=== PATIENT | male | born 1970 | race Caucasian/White ===

== ENCOUNTER → 2016-10-26 | Outpatient (CLI) | payer BC ==
--- NOTE | 2016-10-29 09:47 | MR ---
EXAMINATION TYPE: MR cervical spine wo con DATE OF EXAM: 10/26/2016 4:38 PM COMPARISON: NONE HISTORY: Radiculopathy TECHNIQUE: Multiplanar, multisequence images of the cervical spine were acquired. Exam is limited by patient mot ion. There were attempts to repeat sequences due to severe motion artifact. This did result in a limi brittany assessment of the spinal cord. C2-C3: No disc herniation or canal stenosis. There is left-sided uncovertebral joint hypertrophy whic h results in mild left-sided foraminal encroachment. C3-C4: Mild uncovertebral joint hypertrophy seen with mild broad-based disc bulging but no canal sten osis. Mild bilateral foraminal encroachment. C4-C5: Uncovertebral joint hypertrophy bilaterally. There is a central and left paracentral disc prot rusion with mild effacement of thecal sac. No spinal cord contact. Mild bilateral foraminal encroachm ent. C5-C6: Broad-based central disc small herniation with moderate effacement of thecal sac. Uncovertebra l joint hypertrophy contributes to bilateral mild to moderate foraminal encroachment. There is mild c anal stenosis. C6-C7: Focal broad-based central disc herniation. There is encroachment upon the anterior margin the spinal cord. No definite contact. Uncovertebral joint hypertrophy contributes to moderate bilateral f oraminal encroachment. Assessment for myelitis is limited due to severe motion artifact. C7-T1: No evidence for degenerative disc disease. No disc bulge/herniation or protrusion. No Canal stenosis. Foramina are patent bilaterally. Cervical segments are intact. There is normal alignment. Cervical spinal cord is of normal signal. Craniovertebral junction relationships are within normal limits. IMPRESSION: 1. Disc protrusion or small herniation C4-C5, C5-C6, and C6-C7 with thecal sac impression and canal s tenosis. No spinal cord contact. Findings result in multilevel foraminal encroachment.
== END ==
LOC: RADMRIMAIN 15:16
PROVIDERS: ATTEND Family Medicine
DX: M50.21 Other cervical disc displacement, high cervical region (principal); M50.222 Other cervical disc displacement at C5-C6 level; M50.223 Other cervical disc displacement at C6-C7 level; M48.02 Spinal stenosis, cervical region; G95.89 Other specified diseases of spinal cord
CPT/HCPCS: 72141

== ENCOUNTER → 2017-05-24 | Outpatient (CLI) | payer BC | END | disposition home or self-care (01) | LOC: RADMRIMAIN 18:28 | PROVIDERS: ATTEND Orthopaedic Surgery | DX: Z53.9 Procedure and treatment not carried out, unspecified reason (principal) ==

== ENCOUNTER 2018-03-26 08:54 | Day surgery (SDC) | payer BC ==
[2018-03-20 14:59] VITALS: BMI 29.1
[~2018-03-26 08:54] MED LIST: LACTATED RINGERS 1,000 ML IV SCH; LIDOCAINE 1% 20 ML VIAL (10MG/ML) FOR IV START INTRADERMA PRN
--- NOTE | 2018-03-26 09:15 | P.GSHP ---
History of Present Illness H&P Date: 03/26/18 CHIEF COMPLAINT: Colon screen HISTORY OF PRESENT ILLNESS: The patient is a 47-year-old male who presents for colon screen. Lower endoscopy was offered for further evaluation and management. PAST MEDICAL HISTORY: Please see list. PAST SURGICAL HISTORY: Please see list. MEDICATIONS: Please see list. ALLERGIES: Please see list. SOCIAL HISTORY: No illicit drug use FAMILY HISTORY: No reports of Crohn disease or ulcerative colitis. REVIEW OF ORGAN SYSTEMS: CONSTITUTIONAL: No reports of fevers or chills. PHYSICAL EXAM: VITAL SIGNS: Stable GENERAL: Well-developed pleasant in no acute distress. HEENT: No scleral icterus. Extraocular movements grossly intact. Moist buccal mucosa. NECK: Supple without lymphadenopathy. CHEST: Unlabored respirations. Equal bilateral excursions. CARDIOVASCULAR: Regular rate and rhythm. Distal 2+ pulses. ABDOMEN: Soft, nontender, nondistended. MUSCULOSKELETAL: No clubbing, cyanosis, or edema. ASSESSMENT: 1. Colon screen. PLAN: 1. Recommend proceeding with a lower endoscopy Past Medical History Additional Past Medical History / Comment(s): + HEMOCCULT TEST History of Any Multi-Drug Resistant Organisms: None Reported Additional Past Surgical History / Comment(s): COLONOSCOPY Past Anesthesia/Blood Transfusion Reactions: No Reported Reaction Smoking Status: Current every day smoker - Past Family History Mother Family Medical History: No Reported History Medications and Allergies Home Medications Medication Instructions Recorded Confirmed Type Losartan Potassium 100 mg PO DAILY 03/20/18 03/20/18 History Allergies Allergy/AdvReac Type Severity Reaction Status Date / Time No Known Allergies Allergy Verified 03/20/18 14:54
[2018-03-26 10:27] VITALS: RESP 16; TEMP 97
[2018-03-26] MEDS ORDERED: LIDOCAINE 1% INJ 10MG/ML (20 ML MDV) ONE (11:12)
[2018-03-26] MEDS ORDERED: fentaNYL (PF) 50 MCG/ML 2 ML AMP ONE (11:12)
[2018-03-26] MEDS ORDERED: PROPOFOL 10 MG/ML 20 ML VIAL IV ONE (11:12)
[2018-03-26] MEDS ORDERED: MIDAZOLAM 2 MG/2 ML VIAL ONE (11:12)
--- NOTE | 2018-03-26 11:44 | P.PCN ---
Date of Procedure: 03/26/18 Description of Procedure: PREOPERATIVE DIAGNOSIS: History of positive colo-guard Colonoscopy screening POSTOPERATIVE DIAGNOSIS: History of positive colo-guard Colonoscopy screening Multiple tubular adenomas throughout the colon. External hemorrhoids, grade 2 OPERATION: Colonoscopy to the ileocecal valve and appendiceal orifice. Colonoscopy with multiple hot snare polypectomies Colonoscopy with multiple cold forceps biopsies. SURGEON: Nevaeh Sweeney MD. ANESTHESIA: MAC. INDICATIONS: The patient is a 47-year-old male who presents for colonoscopy screening due to positive colo-guard test. Benefits and risks were described and informed consent was obtained. DESCRIPTION OF PROCEDURE: The patient had undergone Gatorade, MiraLAX and Dulcolax prep. He had been brought into the operating room and laid in the left lateral decubitus position. Prostate was smooth without abnormalities. After adequate intravenous sedation, the rectum was examined with 2% lidocaine jelly. External hemorrhoids were encountered. The rectal tone was within normal limits. No lesions were palpated in the rectal vault. An Olympus colonoscope was advanced until the ileocecal valve and appendiceal orifice were clearly viewed. The prep was fair with visualization of the mucosal folds. The scope was removed with visualization of each mucosal fold. No scattered diverticulosis was encountered. Multiple colonic polyps were found and cold forcep biopsy or snare polypectomy. Mild focal colitis was found at the sigmoid colon without active bleeding. Retroflexion of the scope demonstrated grade 2 internal hemorrhoids without active bleeding or inflammation. The colon was desufflated. The patient had tolerated the procedure well. Withdrawal time was over 6 minutes. FINDINGS: Internal hemorrhoids, grade 2 External hemorrhoids, grade 2. No arteriovenous malformations. Focal colitis, sigmoid colon mild without active bleeding with biopsies obtained using cold forceps Removal of 2 polyps: - Snare polypectomy 40 cm from the anal verge, 5 mm tubulovillous adenoma polyp , descending colon - Cold forceps biopsy at 10 cm from the anal verge, 4 mm polyp, rectum No sigmoid diverticulosis and identified RECOMMENDATIONS: Repeat colonoscopy in 5 years, 2022 Plan - Discharge Summary New Discharge Prescriptions: No Action Losartan Potassium 100 mg PO DAILY Discharge Medication List Losartan Potassium 100 mg PO DAILY 03/20/18 [History]
[2018-03-26 11:57] VITALS: BP 135/87; PULSE 68
== END 2018-03-26 12:19 | disposition home or self-care (01) ==
LOC: ORWHC2ENDO 08:54
PROVIDERS: ATTEND Surgery Plastic and Reconstructive Surgery
DX: D12.4 Benign neoplasm of descending colon (principal); K64.4 Residual hemorrhoidal skin tags; K64.1 Second degree hemorrhoids; K63.5 Polyp of colon; K52.9 Noninfective gastroenteritis and colitis, unspecified; F17.210 Nicotine dependence, cigarettes, uncomplicated; R19.5 Other fecal abnormalities; Z79.899 Other long term (current) drug therapy; Z88.2 Allergy status to sulfonamides
CPT/HCPCS: 88305; 45385; 45380; J2250; J2001; J3010; J2704

== ENCOUNTER → 2018-04-23 | Outpatient (CLI) | payer BC ==
--- NOTE | 2018-04-23 15:14 | XR ---
Lumbar spine HISTORY: Sciatica 3 views of the lumbar spine correlated to prior exam 09/07/2008 Lumbar vertebral bodies show preserved height, alignment, and bone mineralization. There is multileve l spondylosis. Loss of disc height present at L5-S1. Sclerosis present in the posterior elements of t he lower lumbar spine. Apical scarring vascular calcifications are noted incidentally. IMPRESSION: Degenerative disc disease and facet arthropathy.
== END ==
LOC: RADXRMAIN 14:02
PROVIDERS: ATTEND Family Medicine
DX: M51.16 Intervertebral disc disorders with radiculopathy, lumbar region (principal); M46.96 Unspecified inflammatory spondylopathy, lumbar region
CPT/HCPCS: 72100

== ENCOUNTER → 2019-09-23 | Outpatient (CLI) | payer BC ==
--- NOTE | 2019-09-23 12:49 | US ---
EXAMINATION TYPE: US abdomen complete DATE OF EXAM: 09/23/2019 COMPARISON: NONE CLINICAL HISTORY: R10.9 abdominal pain, unspecified. EXAM MEASUREMENTS: Liver Length: 14.6 cm Gallbladder Wall: 0.1 cm CBD: 0.3 cm Spleen: 10.2 cm Right Kidney: 11.7 x 4.0 x 5.3 cm Left Kidney: 11.6 x 5.1 x 5.2 cm Extensive overlying bowel gas. Pancreas: Obscured by bowel gas Liver: Punctate benign calcified granuloma shadowing within the liver parenchyma. Gallbladder: wnl Evidence for sonographic Buchanan's sign: no CBD: wnl Spleen: wnl Right Kidney: wnl Left Kidney: wnl Upper IVC: wnl Abd Aorta: proximal and bifurcation obscured by bowel gas The liver is homogenous. The intrahepatic portion of the IVC and proximal abdominal aorta are within normal limits. There is no evidence of cholelithiasis. Common bile duct is unremarkable. The visu alized portions of the pancreas are homogenous. The spleen is unremarkable. Kidneys are symmetric a nd free of hydronephrosis. No renal lesions are seen. IMPRESSION: No sonographic evidence of hydronephrosis or nephrolithiasis no evidence of cholelithiasi s nor acute cholecystitis.
== END | disposition home or self-care (01) ==
LOC: RADUSWWP 09:54
PROVIDERS: ATTEND Family Medicine
DX: R10.9 Unspecified abdominal pain (principal)
CPT/HCPCS: 76700

== ENCOUNTER → 2020-08-11 | Outpatient (CLI) | payer BC ==
--- NOTE | 2020-08-11 15:12 | CT ---
EXAMINATION TYPE: CT abdomen pelvis w con DATE OF EXAM: 08/11/2020 COMPARISON: None INDICATION: LOWER ABDOMINAL PAIN DLP: 1102.6 mGycm, Automated exposure control for dose reduction was used. CONTRAST: 100 mL of Isovue 300. Study performed with Oral Contrast TECHNIQUE: Axial images were obtained from above the diaphragm to the pubic rami in the axial plane a t 5 mm thick sections. Reconstructed images are reviewed on the computer in the coronal plane. FINDINGS: Limited CT sections are obtained the lung bases. The lung bases are clear. CT ABDOMEN: Liver: Couple of calcified granuloma are within the liver near the gallbladder bed fossa. Spleen: Normal Pancreas: Normal Adrenal glands: The adrenal glands are normal. Gallbladder: Normal Kidneys: No masses are evident. No hydronephrosis is present. No cysts are present. Delayed images were obtained through the kidneys, which remain unremarkable. Aorta: Vascular calcification is within the aorta. No aneurysmal dilatation is evident. Mild fusifor m mid abdominal aortic prominence may be present. Inferior vena cava: Normal. CT PELVIS: Loops of bowel within the abdomen and pelvis are normal. A few scattered diverticuli are within the lower colon. No acute diverticulitis is evident. Loops of bowel distended with oral contrast are no rmal. Appendix: Normal as visualized. Urinary bladder: Normal. Genitourinary structures: Prostate is normal Osseous structures: No suspicious lytic or sclerotic lesions. IMPRESSIONS: 1. No suspicious acute changes to account for abdominal pain
== END | disposition home or self-care (01) ==
LOC: RADCTMAIN 12:56
PROVIDERS: ATTEND Family Medicine
DX: R10.9 Unspecified abdominal pain (principal)
CPT/HCPCS: 74177; Q9967

== ENCOUNTER → 2022-12-05 | Outpatient (CLI) | payer BC ==
--- NOTE | 2022-12-05 11:44 | CA ---
Stress Echo Report Felipe Soliman Age: 52 Gender: M : 1970 Exam Date: 12/05/2022 09:31 Exam Location: [facility] Ht (in): 72 Wt (lb): 220 Ordering Physician: Rodriguez Cruz MD Referring Physician: Anthony BRITTON Tank Wagon Driver: Adele Gallego RDCS Technologist Procedure CPT: Indication: R07.9 CHEST PAIN, UNSPECIFIED ICD-9 Codes: Rhythm: Patient History: Hypertension, Atypical angina, Smoker Cardiac Medications: NONE Medications in past 24 hours: NONE Contrast: Stress Results Protocol: Gordon Total dose(mL): Exercise Duration (min:sec): 12:[address] Depression (mm): Angina Score: Elizabeth Score: METS: 12.3 Resting HR: 96 Resting BP: 155 / 93 Peak HR: 178 Peak BP: 226 / 87 Max Predicted HR: 168 106 % Max Predicted HR Target HR: 143 Double Product: [id number] Stress Summary: The patient's target heart rate was achieved BP Response: Normal Reason for Termination: Reached target heart rate or work-load Cardiac Symptoms: Test terminated after reaching target heart rate (85% max predicted) ECG Analysis Resting ECG: Stress ECG: Arrhythmia: Echo Analysis Resting Echo: Peak Echo Analysis: MEASUREMENTS (Male/Female) Normal Values CONCLUSIONS Baseline heart rate 86 beats a minute, Baseline blood pressure 155/93 mmHg Baseline EKG shows sinus mechanism normal ME narrow QRS normal ST segments Patient exercised on a Gordon protocol for 12 minutes 7 seconds achieving a peak heart rate of 178 beats a minute. Hypertensive response to exercise The blood pressure 226/87 mmHg No symptoms noted Baseline 2-D echo images showed normal LV systolic function without segmental wall motion abnormalities At peak exercise is excellent augmentation of overall LV contractility with a hyperdynamic response No wall motion abnormalities noted At recovery region global LV systolic function remained normal Impression Excellent exercise capacity on a Gordon protocol No ECG or echocardiographic evidence for ischemia Hypertension Dr. Leonle Severino MD (Electronically Signed) Final Date: 05 December 2022 11:43
== END | disposition home or self-care (01) ==
LOC: RADNMMAIN 09:02
PROVIDERS: ATTEND Family Medicine
DX: R07.9 Chest pain, unspecified (principal)
CPT/HCPCS: 93351

== ENCOUNTER 2023-04-10 09:03 | Day surgery (SDC) | payer BC ==
[~2023-04-10 09:03] MED LIST changes: +LIDOCAINE 1% (10MG/ML) FOR IV START INTRADERMA PRN; -LIDOCAINE 1% 20 ML VIAL (10MG/ML) FOR IV START INTRADERMA PRN
[2023-04-10 09:41] VITALS: TEMP 97.2
[2023-04-10] MEDS ORDERED: LIDOCAINE 2% INJ 20 MG/ML (2 ML VIAL) ONE (10:34)
[2023-04-10] MEDS ORDERED: PROPOFOL 10 MG/ML 20 ML VIAL IV ONE (10:34)
--- NOTE | 2023-04-10 10:38 | P.GSHP ---
History of Present Illness H&P Date: 04/10/23 CHIEF COMPLAINT: Colon screen HISTORY OF PRESENT ILLNESS: The patient is a 52-year-old male who presents for colon screen. Lower endoscopy was offered for further evaluation and management. PAST MEDICAL HISTORY: Please see list. PAST SURGICAL HISTORY: Please see list. MEDICATIONS: Please see list. ALLERGIES: Please see list. SOCIAL HISTORY: No illicit drug use FAMILY HISTORY: No reports of Crohn disease or ulcerative colitis. REVIEW OF ORGAN SYSTEMS: CONSTITUTIONAL: No reports of fevers or chills. PHYSICAL EXAM: VITAL SIGNS: Stable GENERAL: Well-developed pleasant in no acute distress. HEENT: No scleral icterus. Extraocular movements grossly intact. Moist buccal mucosa. NECK: Supple without lymphadenopathy. CHEST: Unlabored respirations. Equal bilateral excursions. CARDIOVASCULAR: Regular rate and rhythm. Distal 2+ pulses. ABDOMEN: Soft, nontender, nondistended. MUSCULOSKELETAL: No clubbing, cyanosis, or edema. ASSESSMENT: 1. Colon screen. PLAN: 1. Recommend proceeding with a lower endoscopy Past Medical History Past Medical History: Cancer, GERD/Reflux, Hypertension, Osteoarthritis (OA), Sleep Apnea/CPAP/BIPAP Additional Past Medical History / Comment(s): not using CPAP, skin cancer, hx. colon polyps History of Any Multi-Drug Resistant Organisms: None Reported Additional Past Surgical History / Comment(s): COLONOSCOPY Past Anesthesia/Blood Transfusion Reactions: No Reported Reaction Smoking Status: Former smoker - Past Family History Mother Family Medical History: No Reported History Medications and Allergies Home Medications Medication Instructions Recorded Confirmed Type Losartan Potassium 100 mg PO DAILY 03/20/18 04/10/23 History Celecoxib [CeleBREX] 200 mg PO DAILY 04/08/23 04/10/23 History Pantoprazole Sodium [Protonix] 40 mg PO DAILY 04/08/23 04/10/23 History Allergies Allergy/AdvReac Type Severity Reaction Status Date / Time No Known Allergies Allergy Verified 04/10/23 09:38 Surgical - Exam Vital Signs Temp Pulse Resp BP Pulse Ox 97.2 F L 71 18 137/88 97 04/10/23 09:39 04/10/23 09:39 04/10/23 09:39 04/10/23 09:39 04/10/23 09:39
[2023-04-10 11:20] VITALS: BP 1212/84; PULSE 63; RESP 18
--- NOTE | 2023-04-10 23:03 | P.PCN ---
Date of Procedure: 04/10/23 Description of Procedure: PREOPERATIVE DIAGNOSIS: Personal history of colon polyps Colonoscopy screening. POSTOPERATIVE DIAGNOSIS: Personal history of colon polyps Colonoscopy screening. OPERATION: Colonoscopy to the cecum, ileocecal valve and appendiceal orifice. SURGEON: Nevaeh Sweeney MD. ANESTHESIA: MAC. INDICATIONS: The patient is a 52-year-old male who presents for colonoscopy screening. Last colonoscopy over 5 years. Benefits and risks were described and informed consent was obtained. DESCRIPTION OF PROCEDURE: The patient had undergone Sutab prep. The patient had been brought into the operating room and laid in the left lateral decubitus position. After adequate intravenous sedation, the rectum was examined with 2% lidocaine jelly. External hemorrhoids were encountered. The rectal tone was within normal limits. No lesions were palpated in the rectal vault. An Olympus colonoscope was advanced until the cecum, ileocecal valve and appendiceal orifice were clearly viewed. The prep was excellent. Scattered diverticulosis was encountered. No colonic polyps were found. No evidence of focal colitis was found. Retroflexion of the scope demonstrated grade 2 internal hemorrhoids without active bleeding or inflammation. The colon was desufflated. The patient had tolerated the procedure well. Withdrawal time was over 6 minutes. FINDINGS: Aronchick preparation quality scale 1 (1-5) Internal hemorrhoids, grade 2 External prolapsed hemorrhoids, grade 2 No arteriovenous malformations. No adenomatous polyps. No focal colitis. RECOMMENDATIONS: Lower endoscopy in 2027 Plan - Discharge Summary Discharge Rx Participant: No New Discharge Prescriptions: Continue Losartan Potassium 100 mg PO DAILY Pantoprazole Sodium [Protonix] 40 mg PO DAILY Celecoxib [CeleBREX] 200 mg PO DAILY Discharge Medication List Losartan Potassium 100 mg PO DAILY 03/20/18 [History] Celecoxib [CeleBREX] 200 mg PO DAILY 04/08/23 [History] Pantoprazole Sodium [Protonix] 40 mg PO DAILY 04/08/23 [History] Follow up Appointment(s)/Referral(s): Nevaeh Sweeney MD [STAFF PHYSICIAN] - As Needed Patient Instructions/Handouts: *Surgery [facility] - (Anesthesia) Discharge Instructions Outpatient Surgery, Colonoscopy (DC) Activity/Diet/Wound Care/Special Instructions: Repeat colonoscopy years2027 Discharge Disposition: HOME SELF-CARE
== END 2023-04-10 11:30 | disposition home or self-care (01) ==
LOC: ORWHC2ENDO 09:03
PROVIDERS: ATTEND Surgery Plastic and Reconstructive Surgery
DX: Z12.11 Encounter for screening for malignant neoplasm of colon (principal); K57.30 Diverticulosis of large intestine without perforation or abscess without bleeding; K64.1 Second degree hemorrhoids; K64.4 Residual hemorrhoidal skin tags; K21.9 Gastro-esophageal reflux disease without esophagitis; I10 Essential (primary) hypertension; M19.90 Unspecified osteoarthritis, unspecified site; Z87.19 Personal history of other diseases of the digestive system; Z87.891 Personal history of nicotine dependence
CPT/HCPCS: 45378; J2704; J2001

== ENCOUNTER → 2023-08-08 | Outpatient (CLI) | payer BC ==
--- NOTE | 2023-08-08 11:27 | US ---
EXAMINATION TYPE: US abdomen complete DATE OF EXAM: 08/08/2023 COMPARISON: 09/23/2019 CLINICAL INDICATION: Male, 52 years old with history of R10.9 UNSPECIFIED ABDOMINAL PAIN; LLQ pain. P atient states it sometimes radiates to the flank. Patient also states he has diverticulitis TECHNIQUE: Multiple sonographic images of the abdomen are obtained. FINDINGS: EXAM MEASUREMENTS: Liver Length: 16.5 cm Gallbladder Wall: 0.2 cm CBD: 0.4 cm Spleen: 8.9 cm Right Kidney: 11.7 x 4.6 x 5.6 cm Left Kidney: 11.5 x 6.2 x 5.2 cm TOOL STORAGE ATTENDANT NOTES: Limited visualization due to patient body habitus and overlying bowel gas. Pancreas: Obscured by bowel gas Liver: There are two echogenic areas with posterior shadowing adjacent to the gallbladder, measuring 0.6 and 0.6cm. Gallbladder: wnl Evidence for sonographic Buchanan's sign: No CBD: wnl Spleen: wnl Right Kidney: No hydronephrosis or masses seen Left Kidney: No hydronephrosis or masses seen Upper IVC: wnl Abd Aorta: wnl as best visualizedl The intrahepatic portion of the IVC and proximal abdominal aorta are within normal limits. There is no evidence of cholelithiasis. Common bile duct is unremarkable. The visualized portions of the preciado creas are homogenous. The spleen is unremarkable. Kidneys are symmetric and free of hydronephrosis. No renal lesions are seen. IMPRESSION: Gallbladder calcifications. The hepatic steatosis suggested.
== END | disposition home or self-care (01) ==
LOC: RADUSWWP 10:00
PROVIDERS: ATTEND Family Medicine
DX: K82.8 Other specified diseases of gallbladder (principal); R10.32 Left lower quadrant pain
CPT/HCPCS: 76700

== ENCOUNTER → 2023-09-04 | Outpatient (CLI) | payer BC ==
--- NOTE | 2023-09-11 17:20 | CT ---
EXAMINATION TYPE: CT abdomen pelvis w con CT DLP: 1138.1 mGycm, Automated exposure control for dose reduction was used. DATE OF EXAM: 09/04/2023 9:23 AM COMPARISON: CT 08/11/2020 CLINICAL INDICATION:Male, 52 years old with history of R109 UNSPECIFIED ABDOMINAL PAIN; Left inguinal pain x3 months TECHNIQUE: Axial CT of the abdomen and pelvis. Sagittal and coronal reformats were created on a [email or web address] workstation. Contrast used:100 mL of Isovue 300 with IV Contrast, (none if empty) Oral contrast used: with Oral Contrast (none if empty) FINDINGS: LOWER CHEST: Clear lung bases. Heart size is within normal limits. Moderate coronary artery calcifica tions. No pericardial effusion. ABDOMEN LIVER: A couple of calcified granulomas in the mid to inferior right lobe. No evidence of hepatic mas s. GALLBLADDER AND BILE DUCTS: Partially contracted without evidence of calcified stones or inflammation . Nondilated biliary tree. PANCREAS: Unremarkable. SPLEEN: Unremarkable. ADRENAL GLANDS: Slightly thickened without evidence of mass.. KIDNEYS AND URETERS: Kidneys enhance symmetrically. No evidence of calculus or mass. Mildly prominent extrarenal pelves, left greater than right, without dilated ureters seen. PELVIS BLADDER: Bladder is not fully distended and the wall appears generally thickened up to 5 mm. REPRODUCTIVE: Unremarkable prostate measures about 3.5 cm transverse. ABDOMEN & PELVIS STOMACH AND BOWEL: Contrast has traversed the small bowel loops and extends throughout the colon, wit hout evidence of obstruction. The stomach and duodenum contain little remaining contrast, but appear unremarkable. Contrast is seen within the normal-appearing appendix, axial images 52-56. Mild fatty i nfiltration of the ileocecal valve. No acute focal colonic abnormality is seen. PERITONEUM/RETROPERITONEUM: No evidence of pneumoperitoneum or free fluid. VASCULATURE: Moderate atherosclerotic calcifications are present throughout the abdominal aorta and i ts branches. Proximal celiac and SMA are patent. Mild narrowing of the proximal bilateral renal arter ies. There are likely bilateral accessory renal arteries. There is dilatation of the infrarenal aort a, maximum dimensions 2.9 x 2.5 cm; this is predominately fusiform in shape but somewhat saccular tow ards the left and posteriorly; this appears stable to minimally increased in size since 08/11/2020. Portal venous system is patent. Splenic vein is patent. SMV appears patent but suboptimally opacified . LYMPH NODES: No gross evidence for lymphadenopathy. SOFT TISSUE/ABDOMINAL WALL: Tiny fat-containing umbilical hernia. Small fat-containing inguinal herni as. No bowel-containing hernia or inflammatory process identified. MUSCULOSKELETAL: No acute osseous abnormalities. Mild/moderate disc degeneration changes are present throughout the thoracolumbar spine. Mild/moderate hip arthropathy. IMPRESSION: 1. Thickened appearance of the urinary bladder wall, could be due to incomplete distention or bladde r wall hypertrophy, but correlate clinically to exclude cystitis. 2. Otherwise no acute abnormality demonstrated to explain the patient's symptoms. 3. Small fat-containing bilateral inguinal hernias, and tiny fat-containing umbilical hernia. 4. Moderate coronary artery calcifications. 5. Moderate atherosclerotic calcifications of the abdominal aorta, with ectasia up to 2.9 cm in the infrarenal segment.
== END | disposition home or self-care (01) ==
LOC: RADCTMAIN 07:30
PROVIDERS: ATTEND Family Medicine
DX: K40.00 Bilateral inguinal hernia, with obstruction, without gangrene, not specified as recurrent (principal); N32.89 Other specified disorders of bladder; I25.10 Atherosclerotic heart disease of native coronary artery without angina pectoris; I70.0 Atherosclerosis of aorta
CPT/HCPCS: 74177; Q9967